=== PATIENT | female | born 1955 | race Caucasian/White ===

== ENCOUNTER → 2017-03-21 | Outpatient (CLI) | payer OTHER ==
[~2017-03-21] MED LIST: ASP325TEC PO; CHOL2000 PO; FOLI0.4T2 PO; HYDR-34 PO; METH2.5T PO; TRIA1CAP4 PO
--- NOTE | 2017-03-21 16:48 | Diagnostic Imaging Report ---
PROCEDURE: US Abdomen, limited. TECHNIQUE: Multiple realtime grayscale images were obtained over the abdomen in various projections. INDICATION: Right upper quadrant mass. FINDINGS: There is suggestion of a ventral hernia seen with a defect measuring 4.5 x 4 cm noted along the supraumbilical region to the right of the midline. The contents of the hernia appears to be related to omentum with slight heterogeneity which may relate to inflammation or necrotic components. No definite herniating bowel loop is seen. IMPRESSION: There is suggestion of a ventral hernia in the right upper quadrant with no definite bowel content. Correlate clinically and with a CT scan, if needed. Dictated by: Dictated on workstation # [id number]
== END ==
LOC: RAD 15:31
PROVIDERS: ATTEND Nurse Practitioner Family
DX: R19.01 Right upper quadrant abdominal swelling, mass and lump (principal)
CPT/HCPCS: 76705

== ENCOUNTER → 2018-10-18 | Outpatient (CLI) | payer OTHER ==
--- NOTE | 2018-10-18 11:08 | Diagnostic Imaging Report ---
Digital mammogram. Bilateral screening with 3-D tomosynthesis and CAD. The study was compared to the prior exam of 09/30/2014. At this time there are no current complaints. The breasts are predominantly fatty. A few benign-appearing calcifications have developed in the upper-outer aspect of the right breast. There is no primary or secondary sign of malignancy noted. Impression: 1. There is no evidence of malignancy. 2. The patient should have her annual bilateral screening mammogram on schedule in October of 2019. ACR BI-RADS Category 1: Negative. Result letter will be mailed to the patient. Note: At least 10% of breast cancer is not imaged by mammography. Dictated by: Dictated on workstation # [id number]
== END ==
LOC: RAD 07:54
PROVIDERS: ATTEND Nurse Practitioner Family
DX: Z12.31 Encounter for screening mammogram for malignant neoplasm of breast (principal)
CPT/HCPCS: 77067

== ENCOUNTER → 2019-11-06 | Outpatient (CLI) | payer OTHER ==
--- NOTE | 2019-11-06 09:45 | Diagnostic Imaging Report ---
INDICATION: Routine screening. COMPARISON: 10/18/2018 and 09/30/2014. TECHNIQUE: 2D and 3D bilateral screening mammography was performed with CAD. FINDINGS: Scattered fibroglandular densities are identified bilaterally. Benign calcifications are again noted bilaterally. The circumscribed nodule in the outer left breast is stable. No spiculated mass or malignant appearing microcalcifications are seen. The axillae are unremarkable. IMPRESSION: No mammographic features suspicious for malignancy are identified. ACR BI-RADS Category 2: Benign findings. Result letter will be mailed to the patient. Note: At least 10% of breast cancer is not imaged by mammography. Dictated by: Dictated on workstation # [id number]
== END ==
LOC: RAD 07:32
PROVIDERS: ATTEND Nurse Practitioner Family
DX: Z12.31 Encounter for screening mammogram for malignant neoplasm of breast (principal)
CPT/HCPCS: 77067

== ENCOUNTER → 2021-04-30 | Outpatient (CLI) | payer OTHER ==
--- NOTE | 2021-04-30 09:34 | Diagnostic Imaging Report ---
INDICATION: Routine screening. Comparison is made with prior mammogram 11/06/2019 and 10/18/2018. 2-D and 3-D bilateral screening mammography was performed with CAD. Scattered fibroglandular densities are identified bilaterally. There are benign calcifications in both breasts. There are benign appearing nodules in both breasts which appears stable. No spiculated mass or malignant appearing microcalcifications are seen. Axillae are unremarkable. IMPRESSION: BI-RADS Category 2 No mammographic features suspicious for malignancy are identified. ACR BI-RADS Category 2: Benign findings. Result letter will be mailed to the patient. Note: At least 10% of breast cancer is not imaged by mammography. Dictated by: Dictated on workstation # [id number]
== END ==
LOC: RAD 07:30
PROVIDERS: ATTEND Nurse Practitioner Family
DX: Z12.31 Encounter for screening mammogram for malignant neoplasm of breast (principal)
CPT/HCPCS: 77063; 77067

== ENCOUNTER 2021-09-17 13:15 | Outpatient (CLI) | payer MEDICARE, OTHER ==
[~2021-09-17] VITALS: Ht 162.6 cm; Wt 117.9 kg
[2021-09-17 13:01] VITALS: BP 146/91
[2021-09-17] MEDS ORDERED: ACETAMINOPHEN 500 MG TAB (TYLENOL) PO PRN (13:30)
[2021-09-17] MEDS ORDERED: EPINEPHrine INJECTION 1 MG/ML AMP IM PRN (13:30)
[2021-09-17] MEDS ORDERED: ONDANSETRON 4 MG/2 ML (SDV) Z0FRAN IV PRN (13:30)
[2021-09-17] MEDS ORDERED: CASIRIVIMAB/IMDEVIMAB 1,200 MG in NS (IVPB) 250 ML IV ONE (13:30)
[2021-09-17] MEDS ORDERED: diphenhydrAMINE 50 MG/ML INJ (BENADRYL) IV PRN (13:30)
[2021-09-17 14:47] VITALS: BP 124/73
== END 2021-09-17 15:26 | disposition home or self-care (01) ==
LOC: INFUSION 13:15
PROVIDERS: ATTEND Nurse Practitioner Family
DX: U07.1 COVID-19 (principal)

== ENCOUNTER → 2021-10-15 | Outpatient (CLI) | payer MEDICARE, OTHER ==
--- NOTE | 2021-10-15 18:40 | Diagnostic Imaging Report ---
INDICATION: Post code complications. EXAMINATION: Two views of the chest, 10/15/2021. FINDINGS: The heart is enlarged. Pulmonary vasculature is unremarkable. There is a vague infiltrate at the right lung base with atelectasis at the left lung base. There are no effusions. There is no pneumothorax. Postoperative changes noted in the cervical spine. IMPRESSION: Vague infiltrate at the right lung base with atelectasis on the left. Dictated by: Dictated on workstation # [id number]
== END ==
LOC: WSo 18:22
PROVIDERS: ATTEND Physician Assistant
DX: J98.11 Atelectasis (principal); U09.9 Post COVID-19 condition, unspecified
CPT/HCPCS: 71046

== ENCOUNTER 2021-12-22 05:34 | Outpatient (CLI) | payer MEDICARE, OTHER ==
[~2021-12-22] VITALS: Ht 162.6 cm; Wt 118.8 kg
[2021-12-23] MEDS ORDERED: ASPI-1238 PO (11:05)
[2021-12-23] MEDS ORDERED: METH2.5T PO (11:05)
[2021-12-23] MEDS ORDERED: SPIR50TA PO (11:05)
== END 2021-12-24 07:23 | disposition home or self-care (01) ==
LOC: PREOP 05:34
PROVIDERS: ATTEND Surgery
DX: Z01.818 Encounter for other preprocedural examination (principal)

== ENCOUNTER 2021-12-28 07:01 | Day surgery (SDC) | payer MEDICARE, OTHER ==
[~2021-12-28] VITALS: Ht 162.6 cm; Wt 118.8 kg
[~2021-12-28 07:01] MED LIST changes: +ASPI-1238 PO; +SPIR50TA PO
[2021-12-28] MEDS ORDERED: LACTATED RINGERS 1,000 ML IV STA (07:12)
[2021-12-28] MEDS ORDERED: LACTATED RINGERS 1,000 ML IV ONE (07:13)
[2021-12-28 07:23] VITALS: BP 135/89
[2021-12-28] MEDS ORDERED: MIDAZOLAM 2 MG/2 ML (VERSED) VIAL ONE (07:36)
[2021-12-28] MEDS ORDERED: PROPOFOL INJECTION 50 ML IV ONE ×2 (07:36→08:03)
--- NOTE | 2021-12-28 07:41 | Progress Note-Pre Operative ---
Pre-Operative Progress Note H&P Reviewed The H&P was reviewed, patient examined and no changes noted. Date Seen by Provider: Dec 28, 2021 Time Seen by Provider: 07:41 Date H&P Reviewed: Dec 28, 2021 Time H&P Reviewed: 07:41 Pre-Operative Diagnosis: screening colonoscopy LISA SORIANO DO Dec 28, 2021 07:41
[2021-12-28 08:45] VITALS: BP 136/65
[2021-12-28 08:50] VITALS: BP 152/80
--- NOTE | 2021-12-28 09:39 | Discharge Inst-Simple/Standard ---
Discharge Inst-Standard Patient Instructions/Follow Up Plan of Care/Instructions/FU: 2-3 weeks Reyes Activity as Tolerated: Yes Discharge Diet: Regular Diet LISA SORIANO DO Dec 28, 2021 09:39
--- NOTE | 2021-12-28 09:44 | Progress Note-Post Operative ---
Post-Operative Progess Note Surgeon (s)/Orange Picker Machine Operator (s) Surgeon LISA SORIANO DO Orange Picker Machine Operator: na Pre-Operative Diagnosis screening colonoscopy Post-Operative Diagnosis diverticulosis with sigmoid narrowing, colitis transverse colon Procedure & Operative Findings Date of Procedure 12/28/21 Procedure Performed/Findings colonoscopy c cold biopsies Anesthesia Type per keypunch operator Estimated Blood Loss Estimated blood loss (mL): scant Specimens/Packing Specimens Removed colon transverse LISA SORIANO DO Dec 28, 2021 09:44
[2021-12-28 11:03] VITALS: BP 126/64
--- NOTE | 2021-12-28 12:07 | Anesthesia-General Post-Op ---
MAC Patient Condition Mental Status/LOC: Same as Preop Cardiovascular: Satisfactory Nausea/Vomiting: Absent Respiratory: Satisfactory Pain: Controlled Complications: Absent Post Op Complications Complications None Follow Up Care/Instructions Patient Instructions None needed. Anesthesiology Discharge Order Discharge Order Patient is doing well, no complaints, stable vital signs, no apparent adverse anesthesia problems. No complications reported per nursing. CHRISS CASON CRNA Dec 28, 2021 12:07
--- NOTE | 2021-12-28 15:17 | OPERATIVE REPORT ---
DATE OF SERVICE: 12/28/2021 PREOPERATIVE DIAGNOSIS: Screening colonoscopy. POSTOPERATIVE DIAGNOSES: Diverticulosis, sigmoid narrowing, colitis, transverse colon. PROCEDURE: Colonoscopy with cold biopsies and transverse colon. SURGEON: Lisa Chambers DO ANESTHESIA: Per ANALYTICAL CHEMISTRY TEACHER. ESTIMATED BLOOD LOSS: Scant. COMPLICATIONS: None. INDICATIONS: The patient is a 66-year-old female who is needing screening colonoscopy. She understands risks and benefits of procedure and wishes to proceed. Consent was signed in the chart. DESCRIPTION OF PROCEDURE: The patient was taken to the endoscopy suite, placed in left lateral recumbent position. Timeout was performed. Digital rectal exam was performed noting an area that appears to be a healed anal fissure. Some slight redundancy of skin. No palpable polyps, masses or ulcerations. Scope was inserted in the rectum, advanced through the rectum into the sigmoid colon where began seeing diverticulosis and also a slight narrowing. The scope was then attempted to be moved through this narrowing, which the patient to be repositioned multiple times and the scope was then able to be passed through it. Also, again noting diverticular disease. Once in the transverse colon, began noticing little bit of scant bleeding with changes that were either from some colitis or colonic distention. Cold biopsies were obtained. Scope was able to be advanced all the way to the hepatic flexure, but could no longer be advanced. The patient was repositioned multiple times without any success to evaluate the remainder of the colon. Scope was then slowly retracted back. No polyps, masses or ulcerations within the hepatic flexure, transverse, descending and sigmoid colon. Again, noting the narrowing in the sigmoid colon around the diverticular disease. Scope was then continuously retracted back into the rectum, where it was also retroflexed noting no other pathology. Scope was returned to its normal position, slowly withdrawn until completely removed. The patient tolerated procedure well without any complications. She was taken to recovery room in stable condition. RECOMMENDATIONS: The patient will be recommended high-fiber diet. We would recommend getting a CT scan with rectal contrast or a barium enema to further evaluate the colon. The patient will follow up in two to three weeks to discuss and await biopsy results. Job ID: [id number] DocumentID: [id number] Dictated Date: 12/28/2021 10:22:01 Traveling Nurse Date: 12/28/2021 15:17:01 Dictated By: LISA CHAMBERS DO
[2021-12-30] MEDS ORDERED: FOLI1TAB33 PO (10:45)
[2021-12-30] MEDS ORDERED: CHOL10007 PO (10:45)
== END 2021-12-28 10:40 | disposition home or self-care (01) ==
LOC: ENDO 07:01
PROVIDERS: ATTEND Surgery
DX: K57.30 Diverticulosis of large intestine without perforation or abscess without bleeding (principal); K52.9 Noninfective gastroenteritis and colitis, unspecified; K63.89 Other specified diseases of intestine; K64.9 Unspecified hemorrhoids; E66.01 Morbid (severe) obesity due to excess calories; Z68.42 Body mass index [BMI] 45.0-49.9, adult